=== PATIENT | male | born 1965 | race Two or more races ===

== ENCOUNTER 2017-08-02 00:54 | Inpatient (IN) | payer MEDICAID ==
[~2017-08-02] VITALS: Ht 177.8 cm; Wt 93.4 kg
[~2017-08-02 00:54] MED LIST: FURO20TA PO; SPIR25TA88 PO; URSO300C9 OR
[2017-08-02 01:37] LABS: Basophils # (auto) 0 uL; Basophils % (auto) 0.2 % (0.0-2.0); CONDITION Y; DEFINITIVE SEE PRINTOUT; Eosinophils # (auto) 0.1 uL; Eosinophils % (auto) 1.3 % (0.0-7.0); Hematocrit 47.8 % (41.0-53.0); Hemoglobin 16.7 g/dL (13.5-17.5); Lymphocytes # (auto) 1.7 uL; Lymphocytes % (auto) 22.2 % (10.0-50.0); Mean Corpuscular Hemoglobin 36.4 pg (28.0-32.0); Mean Corpuscular Hgb Conc. 34.9 g/dL (32.0-36.0); Mean Corpuscular Volume 104.2 fL (80.0-100.0); Mean Platelet Volume 12.9 fL (7.4-10.4); Monocytes # (auto) 0.7 uL; Monocytes % (auto) 9.1 % (0.0-12.0); Neutrophils # (auto) 5.1 uL; Neutrophils % (auto) 67.2 % (37.0-80.0); Platelet Count (auto) 94 10^3/uL (140-450); Red Cell Distribution Width 14.4 % (11.6-16.0); SUSPECT SEE PRINTOUT; White Blood Cell 7.6 10^3/uL (4.4-10.8)
[2017-08-02 01:53] LABS: INR 1.33 (0.9-1.15); Partial Thromboplastin Time 28.7 sec (22.64-33.71); Prothrombin Time 14.5 sec (9.37-12.3)
[2017-08-02 02:00] LABS: Albumin 3.6 g/dL (3.4-5.0); Blood Urea Nitrogen 8 mg/dL (7-18); Calcium 8.4 mg/dL (8.5-10.1); Chloride 85 mmol/L (98-107); Sodium 132 mmol/L (136-145)
[2017-08-02 02:03] LABS: Urine Bilirubin 2+ (Negative); Urine Blood Negative /uL (Negative); Urine Color Orange (Yellow); Urine Glucose Normal (Normal); Urine Hyaline Cast MOD /lpf (0 - 2); Urine Ketone Negative (Negative); Urine Mucus FEW (None Seen); Urine Nitrite Negative (Negative); Urine RBC <1 /hpf (0 - 3); Urine Sperm PRESENT /hpf (None Seen); Urine Squamous Epithelial Cell FEW /hpf (<5); Urine Urobilinogen >12.0 mg/dL (Negative); Urine pH 6.5 (5.0-8.0)
[2017-08-02 02:04] LABS: Anion Gap 13 (5-15); Aspartate Aminotransferase 179 U/L (15-37); BUN/Creatinine Ratio 8.6; Carbon Dioxide 34 mmol/L (21-32); GFR African American 110 mL/min; GFR Non-African American 91 mL/min; Glucose 146 mg/dL (74-106)
[2017-08-02 02:06] LABS: Alkaline Phosphatase 213 U/L (45-117); Bilirubin, Total 8.8 mg/dL (0.2-1.0); Total Protein 8.1 g/dL (6.4-8.2)
[2017-08-02 02:17] LABS: Potassium 2.5 mmol/L (3.5-5.1)
[2017-08-02] MEDS ORDERED: DIAZEPAM 5 MG/ML 2ML SYRG IV ONE (03:00)
[2017-08-02] MEDS ORDERED: THIAMINE HCL 100 MG/ML 2ML VIAL IV ONE (03:00)
[2017-08-02] MEDS ORDERED: SODIUM CHLORIDE 0.9% 1,000 ML IV ONE (03:00)
[2017-08-02] MEDS: POTASSIUM CHL 20MEQ/100ML 100 ML IV SCH ×2 (03:21→06:56)
[2017-08-02] MEDS ORDERED: GABAPENTIN 300 MG CAP PO ONE ×2 (03:30→08:45)
[2017-08-02] MEDS ORDERED: chlordiazePOXIDE HCL 25 MG CAP PO ONE ×2 (03:30→05:30)
[2017-08-02] MEDS ORDERED: LORazepam 2MG/ML-1ML VIAL IV ONE ×2 (03:45→05:30)
[2017-08-02] MEDS ORDERED: POTASSIUM CHL 20 Meq TABLET PO ONE (05:30)
[2017-08-02] MEDS ORDERED: POTASSIUM CHL 20MEQ/100ML 100 ML IV ONE (06:38)
[2017-08-02 07:20] LABS: Amylase 50 U/L (25-115)
[2017-08-02] MEDS ORDERED: chlordiazePOXIDE HCL 25 MG CAP PO PRN (08:45)
[2017-08-02] MEDS ORDERED: THIAMINE INJ 100 MG, MULTIPLE VITAMIN 10 ML, FOLIC ACID 1 MG, MAGNESIUM SULF SDV 50% 8 ... IV SCH ×5 (08:45)
[2017-08-02] MEDS ORDERED: LORazepam 2MG/ML-1ML VIAL IV PRN (08:45)
[2017-08-02] MEDS ORDERED: DEXTROSE (50%) 50ML SYRG IV PRN (09:00)
[2017-08-02] MEDS ORDERED: HYDROcodone-ACET 5/325MG TAB PO PRN (09:00)
[2017-08-02] MEDS ORDERED: TEMAZEPAM 15 MG CAP PO PRN (09:00)
[2017-08-02] MEDS ORDERED: ACETAMINOPHEN 325 MG TAB PO PRN (09:00)
[2017-08-02] MEDS ORDERED: MORPHINE SULF INJ 2 MG/ML SYRINGE 1ML IV PRN ×2 (09:00)
[2017-08-02] MEDS ORDERED: DOCUSATE SOD 100 MG CAP PO PRN (09:00)
[2017-08-02] MEDS ORDERED: ONDANSETRON HCL 4 MG/2 ML VIAL IV PRN (09:00)
[2017-08-02] MEDS ORDERED: PHYTONADIONE (VIT K)10 MG/ML 1ML VIAL SUBCUT ONE (09:00)
[2017-08-02] MEDS ORDERED: NITROGLYCERIN 0.4 MG SL TAB SL PRN (09:00)
[2017-08-02] MEDS: SODIUM CHLORIDE 0.9% 1,000 ML IV SCH ×2 (09:11→18:57)
[2017-08-02 09:28] LABS: BUN/Creatinine Ratio 9.8; Calcium 7.9 mg/dL (8.5-10.1)
[2017-08-02] MEDS: POTASSIUM CHL 10 Meq TABLET PO SCH (09:38)
[2017-08-02] MEDS: FUROSEMIDE 40 MG TAB PO SCH (09:38)
[2017-08-02] MEDS: ATENOLOL 25 MG TAB PO SCH ×2 (09:39→21:46)
[2017-08-02 09:41] LABS: Potassium 2.5 mmol/L (3.5-5.1)
[2017-08-02] MEDS: MULTIPLE VITAMIN TAB PO SCH (10:27)
[2017-08-02] MEDS: FAMOTIDINE 20 MG TAB PO SCH ×2 (10:27→21:45)
[2017-08-02] MEDS: InsuLIN REG 1unit/0.01ml Soln (100units/ml) SC SCH ×3 (11:30→21:46)
[2017-08-02] MEDS: ACCU-CHEK COMFORT CURVE STRIP VI SCH ×3 (11:36→21:46)
[2017-08-02] MEDS: LACTULOSE 20Gm/30ML SOLN PO SCH ×4 (12:00→23:56)
[2017-08-02 12:50] VITALS: BP 113/70
[2017-08-02] MEDS: GABAPENTIN 300 MG CAP PO SCH ×2 (14:00→21:45)
[2017-08-02 17:00] VITALS: BP 105/59
[2017-08-02 20:00] VITALS: BP 109/66
[2017-08-02 21:48] VITALS: BP 95/66
[2017-08-03 04:43] VITALS: BP 111/79
[2017-08-03] MEDS: SODIUM CHLORIDE 0.9% 1,000 ML IV SCH ×2 (05:27→10:48)
[2017-08-03] MEDS: LACTULOSE 20Gm/30ML SOLN PO SCH ×3 (05:30→18:01)
[2017-08-03] MEDS: GABAPENTIN 300 MG CAP PO SCH ×3 (05:30→22:17)
[2017-08-03 06:16] LABS: Basophils # (auto) 0 uL; Basophils % (auto) 0.7 % (0.0-2.0); CONDITION Y; DEFINITIVE SEE PRINTOUT; Eosinophils # (auto) 0.1 uL; Eosinophils % (auto) 1.8 % (0.0-7.0); Hematocrit 41.5 % (41.0-53.0); Hemoglobin 14.4 g/dL (13.5-17.5); Lymphocytes # (auto) 1.7 uL; Lymphocytes % (auto) 26.7 % (10.0-50.0); Mean Corpuscular Hemoglobin 36.3 pg (28.0-32.0); Mean Corpuscular Hgb Conc. 34.7 g/dL (32.0-36.0); Mean Corpuscular Volume 104.9 fL (80.0-100.0); Mean Platelet Volume 12.6 fL (7.4-10.4); Monocytes # (auto) 0.6 uL; Monocytes % (auto) 9.6 % (0.0-12.0); Neutrophils # (auto) 3.8 uL; Neutrophils % (auto) 61.2 % (37.0-80.0); Platelet Count (auto) 75 10^3/uL (140-450); Red Cell Distribution Width 14.7 % (11.6-16.0); SUSPECT SEE PRINTOUT; White Blood Cell 6.2 10^3/uL (4.4-10.8)
[2017-08-03] MEDS: ACCU-CHEK COMFORT CURVE STRIP VI SCH ×4 (06:40→22:00)
[2017-08-03] MEDS: InsuLIN REG 1unit/0.01ml Soln (100units/ml) SC SCH ×2 (06:40→11:29)
[2017-08-03 07:17] LABS: Potassium 2.5 mmol/L (3.5-5.1)
[2017-08-03 07:33] LABS: Albumin 2.6 g/dL (3.4-5.0); BUN/Creatinine Ratio 9.7; Calcium 7.3 mg/dL (8.5-10.1)
[2017-08-03 07:36] LABS: Bilirubin, Total 6.6 mg/dL (0.2-1.0); Total Protein 6.3 g/dL (6.4-8.2)
[2017-08-03 08:00] VITALS: BP 101/62
[2017-08-03 09:00] VITALS: BP 99/68
[2017-08-03] MEDS: FUROSEMIDE 40 MG TAB PO SCH (10:00)
[2017-08-03] MEDS: MULTIPLE VITAMIN TAB PO SCH (10:48)
[2017-08-03] MEDS: POTASSIUM CHL 10 Meq TABLET PO SCH (10:48)
[2017-08-03] MEDS: ATENOLOL 25 MG TAB PO SCH ×2 (10:48→22:18)
[2017-08-03] MEDS: FAMOTIDINE 20 MG TAB PO SCH ×2 (10:48→22:17)
[2017-08-03 13:00] VITALS: BP 108/64
[2017-08-03] MEDS ORDERED: POTASSIUM CHL 10% (20 MEQ/15ML) 15ml ORAL SOLN PO ONE (13:00)
[2017-08-03] MEDS ORDERED: chlordiazePOXIDE HCL 25 MG CAP PO PRN (13:00)
[2017-08-03] MEDS ORDERED: LORazepam 2MG/ML-1ML VIAL IV PRN (13:15)
[2017-08-03] MEDS: chlordiazePOXIDE HCL 5 MG CAP PO SCH ×2 (14:12→18:02)
[2017-08-03] MEDS: POTASSIUM CHL 20MEQ/100ML 100 ML IV SCH ×2 (14:12→16:21)
[2017-08-03] MEDS: MAGNESIUM SULFATE 1GM/100ML 100 ML IV SCH ×2 (16:21→18:01)
[2017-08-03 17:00] VITALS: BP 111/68
[2017-08-03 20:00] VITALS: BP 105/64
[2017-08-04] MEDS: LACTULOSE 20Gm/30ML SOLN PO SCH ×2 (00:22→06:08)
[2017-08-04] MEDS: chlordiazePOXIDE HCL 5 MG CAP PO SCH ×2 (01:03→06:45)
[2017-08-04 05:23] LABS: Basophils # (auto) 0 uL; Basophils % (auto) 0.5 % (0.0-2.0); CONDITION Y; DEFINITIVE SEE PRINTOUT; Eosinophils # (auto) 0.1 uL; Eosinophils % (auto) 2.6 % (0.0-7.0); Hematocrit 40.3 % (41.0-53.0); Hemoglobin 14.2 g/dL (13.5-17.5); Lymphocytes # (auto) 1.5 uL; Lymphocytes % (auto) 26.7 % (10.0-50.0); Mean Corpuscular Hemoglobin 37.3 pg (28.0-32.0); Mean Corpuscular Hgb Conc. 35.3 g/dL (32.0-36.0); Mean Corpuscular Volume 105.5 fL (80.0-100.0); Mean Platelet Volume 12.4 fL (7.4-10.4); Monocytes # (auto) 0.6 uL; Monocytes % (auto) 11.1 % (0.0-12.0); Neutrophils # (auto) 3.3 uL; Neutrophils % (auto) 59.1 % (37.0-80.0); Platelet Count (auto) 81 10^3/uL (140-450); Red Cell Distribution Width 15.1 % (11.6-16.0); White Blood Cell 5.6 10^3/uL (4.4-10.8)
[2017-08-04 05:39] LABS: INR 1.2 (0.9-1.15); Partial Thromboplastin Time 29.6 sec (22.64-33.71); Prothrombin Time 13.1 sec (9.37-12.3)
[2017-08-04 05:44] VITALS: BP 110/68
[2017-08-04 05:55] LABS: Albumin 2.6 g/dL (3.4-5.0); BUN/Creatinine Ratio 5.3; Bilirubin, Direct 4.3 mg/dL (0-0.2); Bilirubin, Total 5.8 mg/dL (0.2-1.0); Calcium 7.9 mg/dL (8.5-10.1); Magnesium 2.2 mg/dL (1.6-2.6); Potassium 3.5 mmol/L (3.5-5.1); Total Protein 6.3 g/dL (6.4-8.2)
[2017-08-04] MEDS: GABAPENTIN 300 MG CAP PO SCH (06:08)
[2017-08-04] MEDS: ACCU-CHEK COMFORT CURVE STRIP VI SCH ×2 (06:45→11:30)
[2017-08-04 08:00] VITALS: BP 110/68
[2017-08-04 09:00] VITALS: BP 103/67
[2017-08-04] MEDS: POTASSIUM CHL 10 Meq TABLET PO SCH (10:41)
[2017-08-04] MEDS: FAMOTIDINE 20 MG TAB PO SCH (10:42)
[2017-08-04] MEDS: FUROSEMIDE 40 MG TAB PO SCH (10:42)
[2017-08-04] MEDS: ATENOLOL 25 MG TAB PO SCH (10:43)
[2017-08-04 13:00] VITALS: BP 124/69
[2017-08-04] MEDS ORDERED: LACT10SO3 PO (13:21)
[2017-08-04] MEDS ORDERED: FOLI1TAB6 PO (13:21)
[2017-08-04] MEDS ORDERED: THIA50CA PO (13:21)
[2017-08-04 13:41] VITALS: BP 110/68
== END 2017-08-04 14:15 | disposition home or self-care (01) | DRG 280 ==
LOC: ER 01:00 → TELE 01:01 → TELE-WESTW 12:38
PROVIDERS: ADMIT Internal Medicine; ATTEND Internal Medicine
DX: K70.40 Alcoholic hepatic failure without coma (principal); K70.30 Alcoholic cirrhosis of liver without ascites; G92 Toxic encephalopathy; F10.231 Alcohol dependence with withdrawal delirium; E11.40 Type 2 diabetes mellitus with diabetic neuropathy, unspecified; R65.10 Systemic inflammatory response syndrome (SIRS) of non-infectious origin without acute organ dysfunction; D68.9 Coagulation defect, unspecified; E87.1 Hypo-osmolality and hyponatremia; D69.6 Thrombocytopenia, unspecified; E83.42 Hypomagnesemia; E83.51 Hypocalcemia; F41.9 Anxiety disorder, unspecified; F17.210 Nicotine dependence, cigarettes, uncomplicated; E11.9 Type 2 diabetes mellitus without complications; E87.6 Hypokalemia; I10 Essential (primary) hypertension; K80.20 Calculus of gallbladder without cholecystitis without obstruction; M19.90 Unspecified osteoarthritis, unspecified site; Z83.3 Family history of diabetes mellitus; Z87.440 Personal history of urinary (tract) infections; Z91.14 Patient's other noncompliance with medication regimen; Z88.0 Allergy status to penicillin; Z91.013 Allergy to seafood
CPT/HCPCS: 36415; 71010; 74176; 80048; 80053; 80076; 80307; 80320; 81001; 82140; 82150; 82962; 83036; 83690; 83735; 84132; 84443; 85025; 85610; 85730; 93306; 96361; 96365; 96375; 96376; J1815; J3430; J3480

== ENCOUNTER 2018-05-13 05:11 | Emergency (ER) | payer MEDICAID ==
[~2018-05-13] VITALS: Ht 177.8 cm; Wt 97.5 kg
[~2018-05-13 05:11] MED LIST changes: +FOLI1TAB6 PO; +LACT10SO3 PO; +THIA50CA PO
[2018-05-13] MEDS ORDERED: THIAMINE INJ 100 MG, MULTIPLE VITAMIN 10 ML, FOLIC ACID 1 MG, MAGNESIUM SULF SDV 50% 8 ... IV SCH ×10 (06:30→12:00)
[2018-05-13 06:31] LABS: Basophils # (auto) 0.1 uL; Eosinophils # (auto) 0.2 uL; Lymphocytes # (auto) 2.8 uL; Mean Corpuscular Hgb Conc. 35.2 g/dL (32.0-36.0); Mean Corpuscular Volume 101.9 fL (80.0-100.0); Monocytes # (auto) 0.7 uL; Neutrophils # (auto) 3.8 uL
[2018-05-13 06:34] LABS: Basophils % (auto) 1.8 % (0.0-2.0); Eosinophils % (auto) 2.7 % (0.0-7.0); Hematocrit 45.1 % (41.0-53.0); Hemoglobin 15.9 g/dL (13.5-17.5); Lymphocytes % (auto) 36.6 % (10.0-50.0); Mean Corpuscular Hemoglobin 35.8 pg (28.0-32.0); Monocytes % (auto) 9.3 % (0.0-12.0); Neutrophils % (auto) 49.6 % (37.0-80.0); Nucleated Red Blood Cells % 0.2 %; Platelet Count (auto) 113 10^3/uL (140-450); Red Blood Cells 4.43 10^6/uL (4.5-5.90); Red Cell Distribution Width 14.7 % (11.8-14.3); White Blood Cell 7.7 10^3/uL (4.4-10.8)
[2018-05-13 06:39] LABS: Urine Bacteria NONE SEEN /hpf (None Seen); Urine Blood Negative /uL (Negative); Urine Mucus FEW (None Seen); Urine Specific Gravity 1.012 (1.001-1.035); Urine WBC 1 /hpf (0 - 3)
[2018-05-13 06:44] LABS: Albumin 2.6 g/dL (3.4-5.0); Calcium 7.6 mg/dL (8.5-10.1); Magnesium 1.7 mg/dL (1.6-2.6)
[2018-05-13 06:46] LABS: BUN/Creatinine Ratio 6.8
[2018-05-13 06:48] LABS: Bilirubin, Total 1.6 mg/dL (0.2-1.0); Total Protein 6.2 g/dL (6.4-8.2)
[2018-05-13 06:52] LABS: Potassium 2.9 mmol/L (3.5-5.1)
[2018-05-13] MEDS ORDERED: POTASSIUM CHL 20 Meq TABLET PO ONE (07:00)
[2018-05-13 07:04] LABS: Amphetamine Screen, Urine NEGATIVE (NEGATIVE); Barbiturate Scree,Urine NEGATIVE (NEGATIVE); Benzodiazephine Screen, Urine NEGATIVE (NEGATIVE); Cannabinoid Screen, Urine POSITIVE (NEGATIVE); Cocaine Screen, Urine NEGATIVE (NEGATIVE)
[2018-05-13 07:11] LABS: Opiate Scree,Urine NEGATIVE (NEGATIVE); Phencyclidine Screen, Urine NEGATIVE (NEGATIVE)
[2018-05-13 08:00] VITALS: BP 102/61
== END 2018-05-13 09:46 | disposition home or self-care (01) ==
LOC: ER 05:15
DX: F10.129 Alcohol abuse with intoxication, unspecified (principal); M19.90 Unspecified osteoarthritis, unspecified site; K74.60 Unspecified cirrhosis of liver; G89.29 Other chronic pain; M54.9 Dorsalgia, unspecified; F17.210 Nicotine dependence, cigarettes, uncomplicated; Z88.0 Allergy status to penicillin; Z91.013 Allergy to seafood
CPT/HCPCS: 36415; 80053; 80307; 80320; 81001; 82140; 83735; 85025; 96365; 96366; 99285; J3411; J3475